=== PATIENT | female | born 1965 | race Two or more races ===

== ENCOUNTER → 2017-01-30 | Outpatient (CLI) | payer OTHER ==
--- NOTE | ~2017-01-30 | MY29 ---
[facility] A Service of [facility] & [facility] RADIOLOGY TEXT RESULTS PATIENT: MCKINLEY DUCKWORTH LOCATION: [facility] : 61 UNIT #: [id number] AGE: [address]: RHEA DE LA CRUZ APRN SEX: F ORDER DR: [id number] [facility] [address] [place], [place] [address] [id number] O MR#: [id number] Acc #: [id number] NAME: MCKINLEY DUCKWORTH : 1965 SEX: F STUDY DATE/TIME: 01/30/2017 13:06 UNIT: [facility] ROOM: STUDY DESCRIPTION: [facility] SCREENING W/ CAD BILAT Attending Physician: Debra De La Cruz M.D. Referring Physician: Debra De La Cruz M.D. Ordering Physician: Debra De La Cruz M.D. Primary Care Physician: Nish Huerta M.D. MEDICAL IMAGING REPORT This report is preliminary unless electronic signature is present EXAM Bilateral digital screening mammogram with CAD, 01/30/2017. INDICATION 51-year-old female for routine screening. No reported problems. No personal or family history of breast cancer. No surgeries. TECHNIQUE CC and MLO views of the breasts were obtained and reviewed with an FDA approved CAD device. COMPARISON No comparison studies. This is her baseline examination. FINDINGS The breast parenchyma is composed of scattered fibroglandular densities. The pattern is symmetric. There is no dominant nodule or mass in either breast. No suspicious cluster of microcalcifications. Faint benign calcifications present. In the upper hemisphere right breast on the MLO projection only, there is an asymmetric density measuring 6 mm. It should be further evaluated with spot compression in the MLO projection, a true lateral view, and an exaggerated CC lateral view should be obtained on the right. If the abnormality persists with additional views, ultrasound would be recommend for further assessment. IMPRESSION 6 mm asymmetry in the upper hemisphere right breast. Additional views and potentially breast ultrasound recommended for further assessment as this is her baseline study and there are no comparisons. Patients over the age of 40 are entered into a reminder system with target STS. [facility] A Service of [facility] & [facility] RADIOLOGY TEXT RESULTS PATIENT: MCKINLEY DUCKWORTH LOCATION: [facility] : 61 UNIT #: [id number] AGE: [address]: RHEA DE LA CRUZ APRN SEX: F ORDER DR: due date for the next mammogram. A result letter will also be sent to the patient. BIRADS: 0 Incomplete; need additional imaging evaluation and/or prior mammograms for comparison. Dictated by... Jamar Condon M.D. THIS IS AN ELECTRONICALLY VERIFIED REPORT Jamar Condon M.D. at 01/30/2017 4:25 PM JIM/ina TD: 01/30/2017 14:55 JOB #: [id number] MEDICAL IMAGING REPORT Page 1 of 1 COPY
== END | disposition home or self-care (01) ==
LOC: CWCC 12:19
DX: Z12.31 Encounter for screening mammogram for malignant neoplasm of breast (principal); N64.89 Other specified disorders of breast
CPT/HCPCS: G0202